=== PATIENT | male | born 1955 | race Caucasian/White ===

== ENCOUNTER 2016-07-13 17:09 | Emergency (ER) | payer MEDICAID, OTHER ==
--- NOTE | 2016-07-13 17:11 | EDM.PDOC ---
ED HPI GENERAL MEDICAL PROBLEM - General Chief Complaint: Laceration Stated Complaint: HOOK IN FINGER, [id number] Time Seen by Provider: 07/13/16 17:10 Source of Information: Reports: Patient, Old Records, RN, RN Notes Reviewed History Limitations: Reports: No Limitations - History of Present Illness INITIAL COMMENTS - FREE TEXT/NARRATIVE: Complaint of fishhook in left index finger. Denies any other injury. Patient is allergic to tetanus vaccine. 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 ED EXAM, GENERAL - Physical Exam Exam: See Below Exam Limited By: No Limitations General Appearance: Alert Respiratory/Chest: No Respiratory Distress Cardiovascular: Normal Peripheral Pulses Extremities: Other (fishhook right distal index finger) Neurological: Alert, Oriented, CN II-XII Intact, Normal Cognition, Normal Gait, Normal Reflexes, No Motor/Sensory Deficits Psychiatric: Normal Affect, Normal Mood ED TRAUMA EXTREMITY PROCEDURES - Additional/Other Procedure(s) Other (Free Text) Procedure(s): Fish hook removal left index finger. Area cleaned and prepped by RN with hibiclens and sterile water. Area of fish hook locally blocked with lidocaine 1 % 5cc. Using clean tech. the eye of the hook and lure were cut free and removed with side cutter. The hook shank grasped with needle nosed plier and advanced until the hook and winter were exposed through the skin and removed with side cutter. The remaining hook backed out the entry wound. No residual foreign body. Wound was cleansed, and dried, bacitracin ointment applied, and dressing by RN. No complications. Course - Orders/Labs/Meds Meds: Medications Discontinued Medications Generic Name Dose Route Start Last Admin Trade Name Freq PRN Reason Stop Dose Admin Bacitracin 1 dose 07/13/16 17:25 Bacitracin Oint 1 Gm TOP 07/13/16 17:26 ONETIME ONE Lidocaine HCl 30 ml 07/13/16 17:25 Xylocaine-Mpf 1% INJECT 07/13/16 17:26 ONETIME ONE Departure - Departure Time of Disposition: 17:45 Disposition: Home, Self-Care 01 Condition: good Clinical Impression: [place] injury to finger Qualifiers: Encounter type: initial encounter Laterality: left Qualified Code(s): S69.92XA - Unspecified injury of left wrist, hand and finger(s), initial encounter - Discharge Information Instructions: Puncture Wound, [id number] Forms: ED Department Discharge Additional Instructions: RX: Cephalexin 500mg. Follow up in clinic or return to ER if any signs of infection develop.
[2016-07-13] MEDS ORDERED: Lidocaine 1% 30 ML SDV INJECT ONE (17:25)
[2016-07-13] MEDS ORDERED: Bacitracin Oint 1 GM U/D Packet TOP ONE (17:25)
[2016-07-13] MEDS ORDERED: Cephalexin 500 MG Cap PO ONE (17:46)
[2016-07-13 18:23] VITALS: BP 156/95
== END 2016-07-13 17:55 | disposition home or self-care (01) ==
LOC: DL.ED 17:09
DX: S60.451A Superficial foreign body of left index finger, initial encounter (principal); I48.91 Unspecified atrial fibrillation; I25.10 Atherosclerotic heart disease of native coronary artery without angina pectoris; Z88.7 Allergy status to serum and vaccine; W45.8XXA Other foreign body or object entering through skin, initial encounter
CPT/HCPCS: 99282; A9270